=== PATIENT | female | born 1935 | race Caucasian/White ===

== ENCOUNTER 2016-11-05 12:05 | Emergency (ER) | payer OTHER, BC ==
[~2016-11-05] VITALS: Ht 160 cm; Wt 58.1 kg
[2016-11-05 12:10] VITALS: TEMP 36.8; Ht 160 cm; Wt 58.1 kg
[2016-11-05] MEDS ORDERED: OMEP20CA9 PO (13:23)
[2016-11-05] MEDS ORDERED: OMEGCAP2 PO (13:23)
[2016-11-05] MEDS ORDERED: MULT-225 PO (13:23)
[2016-11-05] MEDS ORDERED: CALC-20 PO (13:23)
[2016-11-05] MEDS ORDERED: SIMV10TA5 PO (13:23)
[2016-11-05] MEDS ORDERED: GLC/500 PO (13:23)
[2016-11-05] MEDS ORDERED: LOSA1TAB PO (13:23)
[2016-11-05] MEDS ORDERED: DTR5 PO (13:23)
[2016-11-05] MEDS ORDERED: ALEN70TA4 PO (13:23)
[2016-11-05] MEDS ORDERED: PROPARACAINE HCL 0.5% OP SOLN 15 ML BTL ONE (13:42)
--- NOTE | 2016-11-05 13:59 | EMERGENCY ROOM VISIT NOTE ---
ED Visit Note First contact with patient: 12:14 CHIEF COMPLAINT: Eye pain HISTORY OF PRESENT ILLNESS: This 81-year-old female patient presents to the emergency department complaining of laryngitis and bilateral eye itchiness, with mild pain and foreign body sensation in the left eye. Patient states she is from [place] and flew into town to visit family a week ago, her symptoms started 2 days later and have been constant for the past 5 days. She has also had associated nasal congestion, phlegm in her throat, and mild cough. There has been a constant irritation, mild redness and tearing in both eye. There is a mild blurring of vision at times and light bothers the eye. The vision has not been decreased over all. The patient does not wear contacts. The patient rates the pain as itching/irritation and to/10. The patient reports recent cataract surgery to the left eye about 1 month ago. Tetanus shot is up to date. She denies any sore throat, difficulty swallowing, wheezing, difficulty breathing, tongue or throat swelling, or fever/chills. REVIEW OF SYSTEMS: A 10 system review of systems was completed with positives and pertinent negatives listed in the HPI. ALLERGIES: See chart MEDICATIONS: See chart PMH: Type 2 diabetes (not on insulin), hypertension, osteoporosis SOCIAL HISTORY: . Denies tobacco use, alcohol, illicit drugs. PHYSICAL EXAM: Vital Signs: Reviewed Nurse's notes, vital signs stable. Visual acuity within normal limits. GENERAL: This is a pleasant elderly female, in no acute distress, but who is uncomfortable from the eye problem. Well-developed well-nourished. HEENT: Head is normocephalic, atraumatic. TMs normal bilaterally. Pharynx is not erythematous, edematous, or with exudate. There is postnasal drainage noted in the posterior pharynx. EYES: The pupils are equal round and reactive to light and accommodation. EOMs are full and without tenderness. There is discharge of clear tears from the bilateral eyes, both of which are injected. There is no foreign body visible under the eyelid even after lid eversion. Funduscopic exam reveals no hemorrhages, papilledema, or other abnormalities. Jennifer pressures measured, right eye average 12.3, left eye average 14.0. No foreign body was seen embedded in the cornea under slit lamp exam. There is stringy discharge noted in the eyes under slit lamp exam. The cornea was clear and no hyphema was seen. Fluorescein uptake was observed with ultraviolet light significant for a corneal abrasion in a horizontal pattern the 6 o'clock position overlying the iris. NECK: Supple, full range of motion without pain, no cervical adenopathy. Medication Reconciliation: I attest that I have personally reviewed the patient' s current medication list. Blood pressure screening: The patient was found to have an elevated blood pressure and was referred to their primary doctor for recheck and further treatment. EMERGENCY DEPARTMENT COURSE: I examined the patient. Proparacaine 2 drops were placed in the patient's left eye. A slit lamp exam was performed as above. There is a corneal abrasion noted to the left eye. The right eye is without injury. Ciloxan two drops was placed in the patient's left eye and she was discharged home with the bottle for continued use. Patient was discussed with Dr. Gupta, who also saw the patient and agrees with assessment and plan. The patient was discharged home in good condition. Current/Historical Medications Scheduled Alendronate Sodium (Fosamax), 70 MG PO WK Calcium Carbonate-Vitamin D (Calcium 600 + D), 1 TAB PO BID Losartan Potassium (Cozaar), Unknown Dose PO DAILY Metformin Hcl (Glucophage), Unknown Dose PO BID Multiple Vitamin (Multi-Day Vitamins), 1 TAB PO DAILY [place]-3 Fatty Acids (Fish Oil), 1 CAP PO BID Omeprazole (Prilosec), 20 MG PO DAILY Oxybutynin Chloride (Oxybutynin Chloride), Unknown Dose PO DAILY Simvastatin (Zocor), Unknown Dose PO QPM Allergies Coded Allergies: Hydromorphone (Unverified Allergy, Severe, HALLUCINATIONS, 11/05/16) Acetaminophen (Unverified Adverse Reaction, Severe, VOMITING, 11/05/16) Hydrocodone (Unverified Adverse Reaction, Severe, VOMITING, 11/05/16) Vital Signs Date Time Temp Pulse Resp B/P (MAP) Pulse Ox O2 Delivery O2 Flow Rate FiO2 11/05/16 14:15 87 16 164/101 95 11/05/16 12:10 96 Room Air 11/05/16 12:10 36.8 100 22 155/80 96 Room Air Medications Administered Medications (Trade) Dose Ordered Sig/Pablito Route Start Time Stop Time Status Last Admin Dose Admin Ciprofloxacin HCl (Ciprofloxacin 0.3% Op Soln) 2 drops NOW ONCE OPL 11/05/16 14:00 11/05/16 14:01 DC 11/05/16 14:06 2 DROPS Departure Information Impression Primary Impression: Allergic rhinitis Additional Impressions: Allergic conjunctivitis, bilateral Left corneal abrasion Dispostion Home / Self-Care Condition GOOD Referrals No Doctor, Assigned (PCP) Forms HOME CARE DOCUMENTATION FORM, IMPORTANT VISIT INFORMATION Patient Instructions My [facility] Additional Instructions For the abrasion in your left eye: Use Ciloxin two drops in your left eye every two hours while awake for two days; then two drops every four hours while awake for three days. For pain or fevers: Use Ibuprofen 600 mg or Tylenol 1000 mg every 6 hrs as needed. For your allergy symptoms: Start taking Claritin one tablet daily to treat general allergy symptoms. You may use Flonase nasal spray, 2 sprays to each nostril daily to help treat congestion and postnasal drainage. Artificial tears as needed throughout the day to both eyes for eye dryness or irritation. Return to the ED or see your eye doctor in 24-48 hours for a recheck. Return to the ED for increasing pain or changes in vision, difficulty breathing or swallowing, severe sore throat, fever/chills/feeling ill, or any worsening symptoms. Problem Qualifiers Primary Impression: Allergic rhinitis Chronicity: acute Allergic rhinitis trigger: unspecified Allergic rhinitis seasonality: unspecified seasonality Qualified Codes: J30.9 - Allergic rhinitis, unspecified Additional Impressions: Left corneal abrasion Encounter type: initial encounter Qualified Codes: S05.02XA - Injury of conjunctiva and corneal abrasion without foreign body, left eye, initial encounter
[2016-11-05] MEDS ORDERED: CIPROFLOXACIN HCL 0.3% OP SOLN 2.5 ML BTL OPL ONE (14:00)
[2016-11-05 14:15] VITALS: BP 164/101; PULSE 87; O2SAT 95
--- NOTE | 2016-11-05 15:17 | EMERGENCY ROOM VISIT NOTE ---
ED Visit Note First contact with patient: 12:14 81-year-old female complains of eye irritation and upper respiratory type congestion. The patient was fully evaluated by Juliette Juan NP. Please see her note. I also independently evaluated the patient.
== END 2016-11-05 14:16 | disposition home or self-care (01) ==
LOC: C.EDB 12:07 → C.EDD 14:16
DX: H10.13 Acute atopic conjunctivitis, bilateral (principal); S05.02XA Injury of conjunctiva and corneal abrasion without foreign body, left eye, initial encounter; X58.XXXA Exposure to other specified factors, initial encounter; J30.9 Allergic rhinitis, unspecified; I10 Essential (primary) hypertension; E11.9 Type 2 diabetes mellitus without complications; M81.0 Age-related osteoporosis without current pathological fracture; Z79.899 Other long term (current) drug therapy; Z88.5 Allergy status to narcotic agent; Z88.6 Allergy status to analgesic agent